=== PATIENT | female | born 1980 | race Caucasian/White ===

== ENCOUNTER 2017-04-20 11:38 | Day surgery (SDC) | payer OTHER ==
[~2017-04-20] VITALS: Ht 162.6 cm; Wt 76.7 kg
[2017-04-20 11:52] VITALS: BP 112/58
--- NOTE | 2017-04-20 12:09 | NUR ---
PATIENT PRESENTS TO ED WITH INSTRUCTED TO COME IN THROUGH OUR ER FOR POSSIBLE D&C TODAY BY DR. COLETTE MCGEE ---LAST MENSTRUAL 01/31/2017 MILD LOWER ABDOMINAL CRAMPING--NO VAG BLEED AT THIS TIME HX---DENIES RX----NONE . DENIES N/V/D; SKIN IS PINK/WARM/DRY; AAOX4 WITH EVEN AND STEADY GAIT; LUNGS CLEAR BL; HR EVEN AND REGULAR; PT DENIES ANY FEVER, CP, SOB, OR COUGH AT THIS TIME; PATIENT STATES PAIN OF 3/10 AT THIS TIME; VSS; PATIENT POSITIONED FOR COMFORT; HOB ELEVATED; BEDRAILS UP X2; BED DOWN. ER MD MADE AWARE OF PT STATUS.
[2017-04-20 12:27] LABS: MEAN CORPUSCULAR HEMOGLOBIN 31 pg (27-31); WHITE BLOOD COUNT (AUTO) 12.2 K/uL (4.8-10.8)
[2017-04-20 12:28] LABS: BILIRUBIN,URINE NEGATIVE (NEGATIVE); BLOOD, URINE 1+ (NEGATIVE); COLOR,URINE YELLOW (YELLOW); LEUKOCYTE ESTERASE ,URINE NEGATIVE (NEGATIVE); NITRITE, URINE NEGATIVE (NEGATIVE); UGLUCOSE NEGATIVE (NEGATIVE)
[2017-04-20 12:31] LABS: HEMATOCRIT 42.1 % (36-48); HEMOGLOBIN 13.9 g/dL (12.0-16.0); MEAN CORPUSCULAR HGB CONC 33 g/dL (33-37); MEAN CORPUSCULAR VOLUME 93 fL (80-94); PLATELET COUNT (AUTO) 244 K/uL (140-450); RED BLOOD CELL COUNT(AUTO) 4.55 MIL/uL (4.20-5.40); RED CELL DISTRIBUTION WIDTH 12.7 % (11.6-13.7)
[2017-04-20 12:33] LABS: APPEARANCE,URINE SLIGHTLY HAZY (CLEAR)
[2017-04-20 12:34] LABS: RBC,URINE 0-5 (RARE) /HPF (0-5); WBC,URINE 0-5 (RARE) /HPF (0-5)
[2017-04-20 12:47] LABS: EOSINOPHILS % (MANUAL) 2 % (0-4); LYMPHOCYTES % (MANUAL) 12 % (20-46); MONOCYTES % (MANUAL) 9 % (5-12)
--- NOTE | 2017-04-20 13:47 | NUR ---
DR MAI EVALUATING AAO PT AT BEDSIDE
--- NOTE | 2017-04-20 13:57 | NUR ---
REPORT GIVEN TO ALYSSA WILSON PT TAKEN TO OR VIA DANNY Addendum: 04/20/17 at 1359 by MACO AT THIS TIME PT TAKEN TO OR BY ALYSSA WILSON, WILL BE ADMITTED TO [facility]
[2017-04-20] MEDS ORDERED: PROPOFOL 200 MG/20 ML VIAL IV ONE (14:15)
[2017-04-20] MEDS ORDERED: LIDOCAINE 2% 100 MG/5 ML SYR IVP ONE (14:15)
[2017-04-20] MEDS ORDERED: SEVOFLURANE 250 ML BTL INH ONE (14:15)
[2017-04-20] MEDS ORDERED: MIDAZOLAM 2 MG/2 ML VIAL ONE (14:26)
[2017-04-20] MEDS ORDERED: HYDROmorphone 1 MG/ML AMP IVP PRN (14:40)
[2017-04-20] MEDS ORDERED: ONDANSETRON 4 MG/2 ML VIAL IVP PRN ×2 (14:40→14:45)
[2017-04-20] MEDS ORDERED: MORPHINE SULFATE 4 MG/ML SYR IM/IVP PRN (14:45)
[2017-04-20] MEDS ORDERED: ACETAMINOPHEN/CODEINE 300/30MG 1 TAB PO PRN (14:45)
[2017-04-20] MEDS ORDERED: IBUPROFEN 800 MG TAB PO PRN (14:45)
[2017-04-20] MEDS ORDERED: HYDROmorphone PFS 2 MG/ML SYR ONE (15:29)
[2017-04-20 15:39] VITALS: BP 102/53
--- NOTE | 2017-04-20 15:39 | NUR ---
RECEIVED PT FROM OR. AWAKE. ALERT ORIENTEDX4. NO SOB NOTED. DENIES ANY PAIN OR DISCOMFORT AT THIS TIME. PT AMBULATORY. NO NOTED ACTIVE VAGINAL BLEEDING. OFFERED PT CLEAR LIQUID DIET. JELLO AND WATER/JUICE TOLERATED WELL. VITAL SIGNS TAKEN AND RECORDED. SAFETY PRECAUTION IN PLACE. CALL LIGHT WITHIN REACH.
[2017-04-20 17:57] VITALS: BP 113/67
--- NOTE | 2017-04-20 18:21 | NUR ---
DISCHARGE INSTRUCTIONS AND HEALTH TEACHINGS DISCUSSED AND EXPLAINED TO PT. PT VERBALIZED UNDERSTANDING AND SIGNED DISCHARGE PAPERS. PT WAS ABLE TO VOID, MINIMAL DISCHARGE NOTED ON PERIPAD. INSTRUCTED PT TO MONITOR DISCHARGE FOR BLEEDING. AND GO TO NEAREST ER IF BLEEDING PERSISTS BLEEDS A LOT. REMINDED PT TO FOLLOW UP WITH DR. Lele MCGEE OB FOR AN APPOINTMENT. IV CANNULA REMOVED AND INTACT. CLEAR LIQUID DIET TOLERATED WELL. NO SOB NOTED DENIES ANY PAIN OR DISCOMFORT NOTED AT THIS TIME. NAME ARMBAND REMOVED. PT REFUSED TO BE WHEELED OUT AND INSISTED TO JUST WALK. PT ASSISTED BY HIM CODER GOING TO THE PARKING LOT WITH , TO THEIR PRIVATE OWNED VEHICLE. PT DISCHARGED ON STABLE CONDITION.
== END 2017-04-20 18:22 | disposition home or self-care (01) ==
LOC: MED 11:38 → MTU 14:05 → MED 14:07 → MDS 14:11 → MTU 14:12 → MDS 18:22
PROVIDERS: ATTEND Obstetrics & Gynecology
DX: O02.1 Missed abortion (principal); K21.9 Gastro-esophageal reflux disease without esophagitis; J45.909 Unspecified asthma, uncomplicated; I11.0 Hypertensive heart disease with heart failure; N18.9 Chronic kidney disease, unspecified; E11.22 Type 2 diabetes mellitus with diabetic chronic kidney disease; G40.909 Epilepsy, unspecified, not intractable, without status epilepticus; D64.9 Anemia, unspecified
CPT/HCPCS: 36415; 59820; 76801; 81001; 84702; 85025; 86886; 86900; 86901; 99285; J1170; J2001; J2250; J2704; J2790; Q0092; 88305; J7120